=== PATIENT | female | born 1985 | race Caucasian/White ===

== ENCOUNTER 2021-07-02 05:17 | Inpatient (IN) | payer MEDICAID, OTHER ==
[~2021-07-02] VITALS: Ht 152.4 cm; Wt 106.1 kg
[~2021-07-02 05:17] MED LIST: FERR1TAB25 PO; IBUP-779 PO; MULT-1146 PO
[2021-07-02] MEDS ORDERED: DEXAMETHASONE 10 MG/ML VIAL IV ONE (06:15)
[2021-07-02] MEDS ORDERED: ACETAMINOPHEN 325MG TABLET PO ONE (06:15)
[2021-07-02 06:42] LABS: BASOPHILS % 0.4 % (0.0-2.0); EOSINOPHILS % 1.1 % (0.0-5.0); HEMATOCRIT. 37.6 % (36.0-48.0); HEMOGLOBIN. 12.8 g/dL (12.0-16.0); LYMPHOCYTES % 29.9 % (20.0-50.0); MEAN CORPUSCULAR HEMOGLOBIN 28.4 pg (28.0-32.0); MEAN CORPUSCULAR VOLUME 83.6 fL (81.0-99.0); MEAN PLATELET VOLUME 8.4 fl (7.4-10.4); MONOCYTES % 7.2 % (2.0-8.0); NEUTROPHILS % 61.4 % (40.0-76.0); PLATELET 274 x1000/uL (130-400); RED CELL DISTRIBUTION WIDTH 14.6 % (11.6-14.6)
[2021-07-02 06:48] LABS: CHLORIDE 108 mEq/L (98-107)
[2021-07-02] MEDS ORDERED: LORAZEPAM 2MG/ML CPJ IV PRN (10:15)
[2021-07-02] MEDS ORDERED: MORPHINE SULFATE 2 MG/ML CPJ (NOT FOR IM USE) IV PRN (10:15)
[2021-07-02] MEDS ORDERED: HYDROCODONE/ACETAMINOPHEN 5/325MG TABLET PO PRN (10:15)
[2021-07-02] MEDS ORDERED: CLONIDINE 0.1MG TABLET PO PRN (10:15)
[2021-07-02] MEDS ORDERED: GUAIFENESIN 200MG/10ML SUGAR FREE UDC PO PRN (10:15)
[2021-07-02] MEDS ORDERED: DOCUSATE SODIUM 100MG CAPSULE PO PRN (10:15)
[2021-07-02] MEDS ORDERED: NA PHOS,M-B/NA PHOS,DI-BA ENEMA 118ML PR PRN (10:15)
[2021-07-02] MEDS ORDERED: IPRATROPIUM/ALBUTEROL 0.5-3(2.5)MG/3ML NEB NEB PRN (10:15)
[2021-07-02] MEDS ORDERED: ENOXAPARIN 40MG/0.4ML SYR SUBCUT SCH (10:15)
[2021-07-02] MEDS ORDERED: DIPHENHYDRAMINE 50MG/ML VIAL IV PRN (10:15)
[2021-07-02] MEDS ORDERED: SODIUM CHLORIDE 0.45% 1,000 ML IV SCH (10:15)
[2021-07-02] MEDS ORDERED: AZITHROMYCIN 500 MG in DEXT 5% WATER 250 ML IV SCH (10:15)
[2021-07-02] MEDS ORDERED: ONDANSETRON HCL 4MG/2ML INJ IV PRN (10:15)
[2021-07-02] MEDS ORDERED: MAGNESIUM/ALUMINUM HYDROXIDE/SIMETHICONE 30ML UDC PO PRN (10:15)
[2021-07-02 11:08] LABS: CHLORIDE 110 mEq/L (98-107)
[2021-07-02] MEDS: AZITHROMYCIN 500MG in DEXTROSE 5% WATER 250ML IV SCH (11:22)
[2021-07-02] MEDS: ENOXAPARIN 30MG/0.3ML SYR SUBCUT SCH ×2 (12:14→14:29)
[2021-07-02] MEDS ORDERED: NALOXONE HCL 0.4MG/ML VIAL IV PRN (13:15)
[2021-07-02] MEDS ORDERED: ALBUTEROL 6.7GM HFA INHALER ORI PRN (15:45)
[2021-07-02] MEDS ORDERED: GUAIFENESIN-DM 200MG-20MG/10ML UDC PO PRN (15:45)
[2021-07-02] MEDS ORDERED: CEFTRIAXONE 1 G PREMIX 50 ML IV SCH (15:45)
[2021-07-02] MEDS: CEFTRIAXONE 1,000 MG in DEXTROSE 5% WATER 50 ML IV SCH (17:12)
[2021-07-02 17:15] VITALS: BP 128/74
[2021-07-02 20:00] VITALS: BP 86/55
[2021-07-03] VITALS: BP 119/76
[2021-07-03] MEDS: ACETAMINOPHEN 325MG TABLET PO PRN ×3 (00:01→20:52)
[2021-07-03] MEDS: ENOXAPARIN 30MG/0.3ML SYR SUBCUT SCH ×2 (00:01→10:37)
[2021-07-03 04:00] VITALS: BP 147/96
[2021-07-03 07:06] LABS: HEMOGLOBIN. 12.1 g/dL (12.0-16.0); MEAN CORPUSCULAR HEMOGLOBIN 28.2 pg (28.0-32.0); MEAN CORPUSCULAR VOLUME 84.3 fL (81.0-99.0); MEAN PLATELET VOLUME 7.7 fl (7.4-10.4); PLATELET 317 x1000/uL (130-400); RED BLOOD CELL COUNT 4.28 mill/uL (4.2-5.4); RED CELL DISTRIBUTION WIDTH 14.1 % (11.6-14.6)
[2021-07-03 07:12] LABS: CHLORIDE 108 mEq/L (98-107)
[2021-07-03 07:21] LABS: LDL CHOLESTEROL 84 mg/dL (5-100)
[2021-07-03 07:23] LABS: HDL CHOLESTEROL 25 mg/dL (40-59); T4 FREE 1.29 ng/dL (0.76-1.46)
[2021-07-03 08:00] VITALS: BP 109/42
[2021-07-03] MEDS: DEXAMETHASONE 4MG/ML 1ML VIAL IV SCH (08:15)
[2021-07-03] MEDS: ASPIRIN 81MG EC TABLET PO SCH (08:15)
[2021-07-03] MEDS: AZITHROMYCIN 500MG in DEXTROSE 5% WATER 250ML IV SCH ×2 (11:00→12:55)
[2021-07-03 12:00] VITALS: BP 94/58
[2021-07-03 16:00] VITALS: BP 99/62
[2021-07-03] MEDS: CEFTRIAXONE 1,000 MG in DEXTROSE 5% WATER 50 ML IV SCH (16:11)
[2021-07-03 18:10] LABS: PLATELET ESTIMATE NORMAL
[2021-07-03 20:00] VITALS: BP 104/62
[2021-07-04] VITALS: BP 117/63
[2021-07-04] MEDS: ENOXAPARIN 30MG/0.3ML SYR SUBCUT SCH ×3 (01:17→23:26)
[2021-07-04 04:00] VITALS: BP 110/63
[2021-07-04 07:46] LABS: HEMATOCRIT. 35.7 % (36.0-48.0); HEMOGLOBIN. 11.9 g/dL (12.0-16.0); MEAN CORPUSCULAR HEMOGLOBIN 28.2 pg (28.0-32.0); MEAN CORPUSCULAR VOLUME 84.5 fL (81.0-99.0); MEAN PLATELET VOLUME 7.8 fl (7.4-10.4); PLATELET 364 x1000/uL (130-400); RED BLOOD CELL COUNT 4.22 mill/uL (4.2-5.4); RED CELL DISTRIBUTION WIDTH 14.2 % (11.6-14.6)
[2021-07-04 08:00] VITALS: BP 92/50
[2021-07-04 08:07] LABS: CHLORIDE 106 mEq/L (98-107)
[2021-07-04] MEDS: DEXAMETHASONE 4MG/ML 1ML VIAL IV SCH (08:11)
[2021-07-04] MEDS: ASPIRIN 81MG EC TABLET PO SCH (08:11)
[2021-07-04] MEDS: AZITHROMYCIN 500MG in DEXTROSE 5% WATER 250ML IV SCH (10:23)
[2021-07-04 12:00] VITALS: BP 109/69
[2021-07-04 14:48] LABS: PLATELET ESTIMATE NORMAL
[2021-07-04 15:59] VITALS: BP 101/65
[2021-07-04] MEDS: CEFTRIAXONE 1,000 MG in DEXTROSE 5% WATER 50 ML IV SCH (16:09)
[2021-07-04] MEDS: ACETAMINOPHEN 325MG TABLET PO PRN (19:59)
[2021-07-04 20:00] VITALS: BP 92/63
[2021-07-05] VITALS: BP 107/68
[2021-07-05 04:00] VITALS: BP 110/65
[2021-07-05 06:30] LABS: HEMATOCRIT. 36.1 % (36.0-48.0); HEMOGLOBIN. 12.2 g/dL (12.0-16.0); MEAN CORPUSCULAR VOLUME 83.1 fL (81.0-99.0); MEAN PLATELET VOLUME 7.9 fl (7.4-10.4); PLATELET 376 x1000/uL (130-400); RED BLOOD CELL COUNT 4.34 mill/uL (4.2-5.4)
[2021-07-05 06:49] LABS: CHLORIDE 106 mEq/L (98-107)
[2021-07-05 08:00] VITALS: BP 102/63
[2021-07-05 08:56] LABS: PLATELET ESTIMATE NORMAL
[2021-07-05] MEDS: DEXAMETHASONE 4MG/ML 1ML VIAL IV SCH (09:32)
[2021-07-05] MEDS: ASPIRIN 81MG EC TABLET PO SCH (09:32)
[2021-07-05] MEDS: AZITHROMYCIN 500 MG TABLET PO SCH (09:32)
[2021-07-05 12:00] VITALS: BP 95/56
[2021-07-05] MEDS: ENOXAPARIN 30MG/0.3ML SYR SUBCUT SCH ×2 (12:10→20:53)
[2021-07-05 15:33] VITALS: BP 98/55
[2021-07-05] MEDS: CEFTRIAXONE 1,000 MG in DEXTROSE 5% WATER 50 ML IV SCH (16:46)
[2021-07-05 20:00] VITALS: BP 101/68
[2021-07-06 00:02] VITALS: BP 102/61
[2021-07-06 04:05] VITALS: BP 100/69
[2021-07-06 08:00] VITALS: BP 101/56
[2021-07-06] MEDS: DEXAMETHASONE 4MG/ML 1ML VIAL IV SCH (08:07)
[2021-07-06] MEDS: ASPIRIN 81MG EC TABLET PO SCH (08:07)
[2021-07-06 09:53] VITALS: BP 101/56
[2021-07-06] MEDS: AZITHROMYCIN 500 MG TABLET PO SCH (10:13)
[2021-07-06] MEDS ORDERED: DEXA4TAB69 MT (15:20)
== END 2021-07-06 11:05 | disposition home or self-care (01) | DRG 720 ==
LOC: ER 05:17 → MICUSO 08:46 → 7WST 14:30
PROVIDERS: ADMIT Internal Medicine; ATTEND Internal Medicine
DX: A41.89 Other specified sepsis (principal); J96.01 Acute respiratory failure with hypoxia; J12.82 Pneumonia due to coronavirus disease 2019; U07.1 COVID-19; E86.0 Dehydration; E66.9 Obesity, unspecified; Z68.42 Body mass index [BMI] 45.0-49.9, adult; D64.9 Anemia, unspecified; F17.210 Nicotine dependence, cigarettes, uncomplicated; R74.01 Elevation of levels of liver transaminase levels; I10 Essential (primary) hypertension; I51.4 Myocarditis, unspecified
CPT/HCPCS: 36415; 71045; 80048; 80053; 80061; 82728; 83615; 83880; 84145; 84439; 84443; 84484; 85025; 85379; 86140; 93005; 99285; J0456; J0696; J1100; J1650; J7040; J7060; U0003; U0005

== ENCOUNTER 2021-07-06 14:43 | Emergency (ER) | payer MEDICAID, OTHER ==
[~2021-07-06] VITALS: Ht 165.1 cm; Wt 91.0 kg
[2021-07-06 14:51] VITALS: BP 93/46
[2021-07-06] MEDS ORDERED: DEXAMETHASONE 4MG TABLET PO ONE (15:15)
[2021-07-06] MEDS ORDERED: DEXA4TAB69 MT (15:20)
== END 2021-07-06 15:18 | disposition home or self-care (01) ==
LOC: ER 14:43
DX: U07.1 COVID-19 (principal)
CPT/HCPCS: 99281